=== PATIENT | male | born 1950 | race Caucasian/White ===

== ENCOUNTER 2017-07-24 05:15 | Day surgery (SDC) | payer OTHER ==
[~2017-07-24] VITALS: Ht 177.8 cm; Wt 90.7 kg
--- NOTE | ~2017-07-24 | S ---
[facility] [place] [address] SURGICAL PATH RPT PROCEDURE Name: ELIAS COVARRUBIAS Room #: DEP [facility].#: [id number] Admission: 07/24/17 Date of : 48 Discharge: 07/24/17 Report #: [id number] Path Case #: [id number] PATHOLOGY REPORT COLLECTION DATE: 07/24/2017 RECEIVED DATE: 07/24/2017 SUBMITTING PHYS: Dr. Rickey Jon OTHER PHYS: SPECIMEN(S) RECEIVED: A.Tumor left lower lid * * * * * * * * * * * * FINAL DIAGNOSIS: Skin, tumor left lower lid, excisional biopsy: - BASAL CELL CARCINOMA COMPLETELY EXCISED. (SHA:pit; 07/25/2017) PATHOLOGIST: Maik Rodriguez M.D. REPORT ELECTRONICALLY SIGNED BY: Maik Rodriguez M.D. DATE/TIME: 07/25/2017 14:08 * * * * * * * * * * * * GROSS PATHOLOGY: Specimen received fresh labeled, "Elias Covarrubias-tumor left lower lid", consists of a piece of lid that measures 0.7 x 0.6 x 0.3 cm. It is oriented by Dr. Jon as medial, lateral and deep. The medial margin is inked red, the lateral margin is inked yellow, the deeper inferior margin is inked black. The specimen is sectioned frozen and submitted in cassette labeled A1. (SHA:alin; 07/24/2017) FROZEN SECTION DIAGNOSIS: (Maik Rodriguez M.D.) FSA1. Tumor left lower lid: - Basal cell carcinoma, margins appear free. These findings were discussed with Dr. Jon and a written report was placed in the patient's chart. Testing performed by [facility] at [facility] , [place] [address] SHA:alin; 07/24/2017) CLINICAL HISTORY: Tumor left lower eyelid [facility] [place] [address] SURGICAL PATH RPT PROCEDURE Name: ELIAS COVARRUBIAS Room #: DEP [facility] Rajat#: [id number] Admission: 07/24/17 Date of : 48 Discharge: 07/24/17 Report #: [id number] Path Case #: [id number] INITIAL CPT CODE(S): A; 54584, 02624 Professional services performed by [employer], [address] [place] [address]. Technical services performed by [employer], [address], [address], [place] [address]. [facility] [place] [address] PHONE: [phone] DIRECTOR: Zack Emmanuel M.D. * * * END OF REPORT * * *
--- NOTE | ~2017-07-24 | O ---
[facility] [place] [address] OPERATIVE REPORT Name: KEVIN DIALLO Room #: DEP [facility].#: [id number] Admission: 07/24/17 Attend Phys: Rickey Jon MD Discharge: 07/24/17 Date of : 48 Report #: [id number] THIS REPORT FOR: //name// CC: Dr. Kevin Rosado FAM unknown Rickey Jon PREOPERATIVE DIAGNOSIS: Tumor of left lower lid and cheek. POSTOPERATIVE DIAGNOSES: Tumor of left lower lid and cheek, basal cell carcinoma PROCEDURE: Excision of tumor of left lower lid with frozen sections and myocutaneous flap repair of defect. SURGEON: Rickey Jon M.D. INK MAKER: None. ANESTHESIA: General. COMPLICATIONS: None. INDICATIONS FOR SURGERY: This pleasant 66-year-old gentleman has a nodular ulcerative lesion in the central left lower lid that appears to be a basal cell carcinoma. He presents today for excision of that tumor with frozen sections and subsequent repair of that defect. Informed consent was obtained to include, but not limited to potential risk for loss of vision, bleeding, infection, failure to improve the problem, the potential need for further surgery or treatment. A stage reconstruction was specifically discussed. DESCRIPTION OF PROCEDURE: The patient was taken to the operating room where general anesthesia was administered with a laryngeal mask airway. The left lower lid, the left cheek, the left lateral canthus, the left upper lid and the right supraclavicular areas were anesthetized with Xylocaine with epinephrine mixed with Marcaine and Wydase. The patient was subsequently prepped and draped in the usual sterile fashion. A fine tip skin marking pen was then utilized to outline the lesion in the left lower lid including a 2-3 mm cuff of normal appearing tissue. The incisions were then made perpendicularly across the eyelid margin and drawn down to a point in the premalar space. Hemostasis was achieved in the field with diligent pinpoint monopolar cautery. The pathologist snap froze that tissue and found that the lesion was indeed a basal cell carcinoma and that the margins appeared to be clear. [address] [address] OPERATIVE REPORT Name: KEVIN DIALLO Room #: DEP [facility]..#: [id number] Admission: 07/24/17 Attend Phys: Rickey Jon MD Discharge: 07/24/17 Date of : 48 Report #: [id number] Over one-third of the lid had been resected with the tumor. A myocutaneous flap was then developed laterally and hemostasis re-achieved. The flap was then advanced and closed with multiple interrupted buried 5-0 Vicryl sutures deep. 5-0 Vicryl sutures were used to reapproximate the tarsal plate. The eyelid margin was reapproximated with interrupted 7-0 Vicryl sutures. The subcutaneous structures and the skin were then closed with multiple interrupted 6-0 plain gut sutures. The wounds were then cleaned and dressed with erythromycin ophthalmic ointment. The patient subsequently transported to the recovery area having tolerated the procedures well with no anesthetic or operative complications being noted. <ELECTRONICALLY SIGNED> By: Rickey Jon MD 07/28/17 0617 [id number] 1534 Rickey Jon MD /nt
[~2017-07-24 05:15] MED LIST: LIPITOR 20 MG T20 M1 PO; MULTIVITAMINS1 EAC7 PO; OMEPRAZOLE 20 M20 MG PO; PLAVIX 75 MG TA75 M1 PO; PROCARDIA XL60 MG PO; ZESTORETIC 20-1 EAC3 PO
[2017-07-24 13:35] VITALS: BP 123/96
== END 2017-07-24 16:19 | disposition home or self-care (01) ==
LOC: TBA 05:15 → OR 05:15
DX: C44.119 Basal cell carcinoma of skin of left eyelid, including canthus (principal); Z87.891 Personal history of nicotine dependence; I10 Essential (primary) hypertension; E78.00 Pure hypercholesterolemia, unspecified; K21.9 Gastro-esophageal reflux disease without esophagitis
CPT/HCPCS: 50010; 50101; 50398; 51636; 56528; 56531; 62110; 62900; 64037; 70005